=== PATIENT | male | born 1955 | race Caucasian/White ===

== ENCOUNTER 2017-03-22 13:56 | Emergency (ER) | payer OTHER ==
[~2017-03-22] VITALS: Ht 172.7 cm; Wt 71.9 kg
[~2017-03-22 13:56] MED LIST: CLINDAMYCIN HC300 MG PO; DILAUDID2 MG PO; NAPROXEN250 MG PO; PATANOL OP100 DROP/5 RIGHT EYE; PERCOCET 5/31 TABLET PO; TOBRAMYCIN SULFA5 ML RIGHT EYE
[2017-03-22 15:42] LABS: HEMATOCRIT 43.9 % (38.0-50.0); MCH 31.6 PG (29.0-34.0); MCHC 34.2 G/DL (30.0-36.0); MCV 92.4 FL (86-99); PLATELET COUNT 408 K/uL (156-360); RBC DIS.WIDTH-CV 13.2 % (11.8-14.6); RBC DIS.WIDTH-SD 45.4 % (39-53); RED BLOOD COUNT 4.75 M/uL (4.00-5.50); WHITE BLOOD COUNT 18.9 K/uL (4.1-10.2)
[2017-03-22 15:49] LABS: CHLORIDE 104 mEq/L (99-109); D-DIMER ELISA < 150.00 ng/mLDDU (<230); POTASSIUM 3.9 mEq/L (3.7-5.4); SODIUM 135 mEq/L (136-147)
[2017-03-22 15:51] LABS: GLUCOSE 94 mg/dL (70-99)
[2017-03-22 15:55] LABS: CREATININE 0.7 mg/dL (0.6-1.3); GFR ESTIMATE (CALCULATED) > 59 mL/min/ (58.99-99999)
[2017-03-22 15:56] LABS: UREA NITROGEN (BUN) 12 mg/dL (9-23)
[2017-03-22] MEDS ORDERED: PREDNISONE20 MG PO (16:24)
[2017-03-22] MEDS ORDERED: TESSALON PERLE100 MG PO (16:24)
[2017-03-22] MEDS ORDERED: MUCINEX1200 MG PO (16:24)
[2017-03-22 16:41] VITALS: BP 109/78
== END 2017-03-22 16:42 | disposition home or self-care (01) ==
LOC: EME 13:56
PROVIDERS: Nurse Practitioner Family
DX: J44.1 Chronic obstructive pulmonary disease with (acute) exacerbation (principal); J44.0 Chronic obstructive pulmonary disease with (acute) lower respiratory infection; J20.9 Acute bronchitis, unspecified; F17.200 Nicotine dependence, unspecified, uncomplicated; Z88.5 Allergy status to narcotic agent
CPT/HCPCS: 80048; 85027; 85379; 93005; 99281; 99284